=== PATIENT | female | born 1980 | race Caucasian/White ===

== ENCOUNTER → 2018-10-03 | Outpatient (CLI) | payer OTHER | END | disposition home or self-care (01) | LOC: LAB 12:16 → LAB SHORT 12:16 | DX: N90.89 Other specified noninflammatory disorders of vulva and perineum (principal) | CPT/HCPCS: 87529 ==

== ENCOUNTER → 2022-10-25 | Outpatient (CLI) | payer BC, OTHER ==
[~2022-10-25] MED LIST: NAPR550 PO; Norco 5-325 Ta1 EACH PO; ZYRTEC10 M2 PO
== END ==
LOC: LAB 08:26 → LAB SHORT 08:26 → PLD 08:26
DX: N85.01 Benign endometrial hyperplasia (principal)
CPT/HCPCS: 88305

== ENCOUNTER 2022-12-09 11:57 | Day surgery (SDC) | payer BC, OTHER ==
[~2022-12-09] VITALS: Ht 165.1 cm; Wt 69.4 kg
[2022-12-09] MEDS ORDERED: METHI10 (12:33)
--- NOTE | 2022-12-09 12:35 | NUR ---
12/09/22 1235 Yadi Srinivasan CALL LIGHT WITHIN REACH
--- NOTE | 2022-12-09 14:05 | NUR ---
12/09/22 1405 Nora Kinney 180CC NORMAL SALINE FLUID DEFICIT FROM HYSTEROSCOPY. SURGEON AWARE.
--- NOTE | 2022-12-09 16:22 | NUR ---
12/09/22 1622 Cristian Spivey PT VOIDED PRIOR TO DISCCHARGE. PT CONTINUED TO REPORT NAUSEA AT TIME OF DISCHARGE BUT STATED THAT HER NAUSEA WAS IMPROVING AND SHE FELT COMFORTABLE RETURNING HOME. PT REPORTED 3/10 CRAMPING AT TIME OF DISCHARGE BUT STATED THE PAIN WAS TOLERABLE FOR RETURNING HOME. PT INQUIRED TO WHEN SHE COULD TAKE FIRST DOSE OF IBUPROFEN AT HOME. DR. SANDOVAL ADVISED SHE COULD TAKE UP TO 400MG IMMEDIATELY WITH FOOD. PT REFUSED TYLENOL IN STEP DOWN.
== END 2022-12-09 15:45 | disposition home or self-care (01) ==
LOC: ORSCSDS 11:57
PROVIDERS: Obstetrics & Gynecology
PROC: 0U5B8ZZ Destruction of Endometrium, Via Natural or Artificial Opening Endoscopic (ICD-10-PCS; principal; 2022-12-09 13:15)
PROC: 0UDB8ZX Extraction of Endometrium, Via Natural or Artificial Opening Endoscopic, Diagnostic (ICD-10-PCS; principal; 2022-12-09 13:15)
PROC: 0UB98ZX Excision of Uterus, Via Natural or Artificial Opening Endoscopic, Diagnostic (ICD-10-PCS; principal; 2022-12-09 13:15)
DX: N92.0 Excessive and frequent menstruation with regular cycle (principal); D25.9 Leiomyoma of uterus, unspecified; E05.00 Thyrotoxicosis with diffuse goiter without thyrotoxic crisis or storm; Z79.899 Other long term (current) drug therapy
CPT/HCPCS: 88305; A9270; J1100; J1885; J2250; J2405; J2704; J2765; J3010; J7120

== ENCOUNTER → 2022-12-31 | Outpatient (CLI) | payer BC, OTHER ==
[~2022-12-31] MED LIST changes: +METHI10
[2023-01-01 13:15] LABS: G. vaginalis (DNA Probe) Positive (NEGATIVE); T. vaginalis (DNA Probe) Negative (NEGATIVE)
[2023-01-01 13:16] LABS: Candida species (DNA Probe) Negative (NEGATIVE)
== END | disposition home or self-care (01) ==
LOC: LAB SHORT 13:20 → LAB 13:20
PROVIDERS: Obstetrics & Gynecology
DX: N76.0 Acute vaginitis (principal)
CPT/HCPCS: 87480; 87510; 87660